=== PATIENT | female | born 1950 | race Caucasian/White ===

== ENCOUNTER → 2017-10-14 | Outpatient (CLI) | payer MEDICARE ==
--- NOTE | 2017-10-15 14:49 | MM ---
Reason for exam: screening (asymptomatic). Last mammogram was performed 4 years and 1 month ago. History: Patient is postmenopausal, has history of breast cancer at age 55, and has history of high-risk lesion on a previous biopsy at age 55. Family history of breast cancer in aunt. Malignant mastectomy of the left breast, July 23, 2006. Malignant excisional biopsy of the left breast, May 08, 2006. High risk left mammotome panel of the left breast, February 01, 2006. Physical Findings: A clinical breast exam by your physician is recommended on an annual basis and results should be correlated with mammographic findings. MG 3D Scr Radha Unilateral W/Cad Bilateral CC and MLO view(s) were taken. Prior study comparison: September 16, 2013, right diagnostic mammogram w/CAD. April 09, 2006, mammogram, performed at [facility]. There are scattered fibroglandular densities. No significant changes when compared with prior studies. ASSESSMENT: Negative, BI-RAD 1 RECOMMENDATION: Routine screening mammogram of the right breast.
== END | disposition home or self-care (01) ==
LOC: RADMAMWWP 09:04
PROVIDERS: ATTEND Family Medicine
DX: Z12.31 Encounter for screening mammogram for malignant neoplasm of breast (principal)
CPT/HCPCS: 77067